=== PATIENT | male | born 1995 | race Caucasian/White ===

== ENCOUNTER → 2018-05-12 11:30 | Outpatient (RCR) | payer SELFPAY ==
--- NOTE | 2013-04-13 12:54 | TODAY_ITS ---
To: PCP AND CCC Reason for today's visit: HEALTH INSURANCE Plan: 04/10/13 - WALK IN - PT IN NEED OF HEALTH INSURANCE AND PCP. PROVIDED FORM FOR STATE BENEFITS. PT WILL COMPLETE AND CALL US WITH ANY QUESTIONS. WE CALLED AND CONNECTED PT TO [facility]. PT HAS APPT AT THE END OF APRIL. PT WILL FOLLOW UP WITH ANGELA ON 04/11/13 WITH ANY HEALTH INSURANCE QUESTIONS. Action Plan: Chronic Condition: Referred to:
--- NOTE | 2013-05-11 15:59 | TODAY_ITS ---
To: PCP AND CCC Reason for today's visit: HEALTH INSURANCE Plan: 05/11/13 - WALK IN. PT UNSURE ABOUT HEALTH INSURANCE. WE CALLED STATE AND PT HAS ACTIVE MEDICAID AND 3SQUARES. UPDATED MEDICAID WITH PCP. PT HAS APPT TODAY WITH PCP. LOOKING TO START HIS MEDICATIONS AGAIN. 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 FOLLOW UP BY PHONE. Action Plan: Chronic Condition: Referred to:
== END ==
LOC: CCT 04-10 10:30
DX: 799.89 (principal)

== ENCOUNTER 2018-06-30 08:31 | Emergency (ER) | payer MEDICAID, SELFPAY ==
[2018-06-30 08:53] VITALS: BP 129/81; PULSE 78; RESP 14; TEMP 36.5; O2SAT 100
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
== END 2018-06-30 09:37 | disposition home or self-care (01) ==
PROVIDERS: Emergency Provider Student in an Organized Health Care Education/Training Program; PCP Nurse Practitioner Family
DX: F32.9 Major depressive disorder, single episode, unspecified (principal)
CPT/HCPCS: 99283

== ENCOUNTER 2019-03-07 09:16 | Emergency (ER) | payer MEDICAID, SELFPAY ==
[2019-03-07 09:22] VITALS: BP 134/86; PULSE 102; RESP 16; TEMP 36.5; O2SAT 96
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
== END 2019-03-07 10:04 | disposition home or self-care (01) ==
LOC: ER 10:18
PROVIDERS: Emergency Provider Emergency Medicine; PCP Nurse Practitioner Family
DX: S60.221A Contusion of right hand, initial encounter (principal); W22.09XA Striking against other stationary object, initial encounter
CPT/HCPCS: 29125; 99283; 73130; 99282; L3908

== ENCOUNTER 2019-06-29 09:47 | Emergency (ER) | payer MEDICAID, SELFPAY ==
[2019-06-29 09:57] VITALS: BP 121/80; PULSE 81; RESP 16; TEMP 37; O2SAT 98
--- NOTE | 2019-06-29 10:07 | ED.GENADUL_ITS ---
Discharge Plan Disposition Patient Disposition: HOME Condition: Stable Discharge Details Chief Complaint: Abd Prob Clinical Impression: Abdominal pain Primary Care Provider: Sylvia Borjas ED Provider: Julio Hernandez Home Meds and New Rx's Prescriptions: New omeprazole 20 mg capsule,delayed release(DR/EC) 20 mg PO DAILY Qty: 30 RF: 0 Continued sertraline [Zoloft] 100 MG tablet 150 mg PO QAM RF: 0 Discharge Instructions Instructions: Abdominal Pain (ED) Additional Instructions: follow up with your primary care provider within 1-2 weeks if you have severe worsening pain, persistent vomit or feel more ill return to the emergency department you can also try taking maalox and tums for the discomfort Stand Alone Forms: Work Release Medical Decision Making 23 yo male who denies chronic medical problems comes in with chief complaint of abdominal pain for a week that is worsening and worsens with eating. Denies fevers or chills, and no prior hx of pain like this and no prior surgeries. Hasn't had alcohol in 5 months per pt, uses marijuana otherwise denies drug use. He has tenderness in ruq, epigastric area and luq, no lowre abdominal tenderness or distention. suspect gerd vs gsatritis but feel labs and imaging to eval for possible pancreatitis, cholecystitis, vs sbo is indicated. labs and imaging unremarkable, only has mild epigastric pain now. Suspect gastritis. No haddad's sign. Will start ppi and have her f/u with pcp, return precautions given Differential Diagnosis Differential Diagnosis: cholecystitis, pancreatitis, sbo Medical Records Medical records reviewed: Yes I reviewed the patient's medical records. Imaging Data Radiologic Study: Attestation: I personally reviewed and interpreted this imaging study as follows: Imaging: CT Scan Radiologist's impression: no acute findings Lab Data Lab results reviewed: Yes I reviewed the patient's lab results. HPI General Mode of arrival: ambulatory . Date/Time Provider Initiated Documentation: 06/29/19 09:50 . Limitations to Documentation: no limitations . Information obtained by: patient . History of Present Illness 23 year old M presents to the emergency department with the chief complaint of abdominal pain, described as moderate and severe, Quality is described as aching, and is localized to the abdomen. Patient reports no radiation. Patient started experiencing this week(s) (1) and it has been constant. No relieving factors improve symptom(s), Eating worsens symptoms . Patient notes nausea/vo miting. Patient did receive the following treatments prior to arrival, none Related Data Home Medications Medication Instructions Recorded Confirmed sertraline [Zoloft] 150 mg PO QAM 08/21/17 03/07/19 omeprazole 20 mg PO DAILY #30 cap 06/29/19 Previous Rx's Medication Instructions Recorded omeprazole 20 mg PO DAILY #30 cap 06/29/19 Allergies Allergy/AdvReac Type Severity Reaction Status Date / Time acetaminophen Allergy Intermediate Itching Unverified 03/07/19 09:25 vancomycin Allergy Intermediate Itching Unverified 03/07/19 09:25 General Stated Complaint: Abd Prob RAY: 3 Review of Systems Review of Systems ROS Unobtainable: All systems reviewed & are unremarkable except as noted in HPI and below Constitutional Constitutional: Denies chills, Denies fever(s) and Denies weakness Cardiovascular Cardiovascular: Denies chest pain and Denies dyspnea Respiratory Respiratory: Denies cough and Denies dyspnea Musculoskeletal Musculoskeletal: Denies joint swelling Neurologic Neurologic: Denies weakness [facility] Social History Smoking/Tobacco Use Status: Current every day Alcohol Intake: former Drug use: Daily Substance use type: marijuana Do you feel safe at home: Yes Do you feel safe in your relationship?: Yes Exam Const General: no acute distress Orientation: alert HENMT Head: normal to inspection Ears: external ears normal General nose exam: external nose normal Mouth: moist mucous membranes Eyes General: appearance normal, both eyes and all related structures Neck Neck: normal visual inspection Resp Effort & Inspection: normal respiratory effort and able to speak in complete sentences Cardio Rate: regular rate GI Palpation: soft Skin General skin exam: no rashes or lesions noted Neuro General: alert and oriented x3 Extrem General: normal to inspection Psych Mental Status: mental status grossly normal Course Vital Signs Vital signs: Vital Signs Temperature 37.0 C 06/29/19 09:57 Pulse 81 06/29/19 09:57 Respiratory Rate 16 06/29/19 09:57 Blood Pressure 121/80 06/29/19 09:57 Pulse Oximetry 98 06/29/19 09:57 Temperature 37.0 C 06/29/19 09:57 Temperature Source Temporal Artery Scan 06/29/19 09:57 Pulse 81 06/29/19 09:57 Respiratory Rate 16 06/29/19 09:57 Respiratory Effort Non-Labored 06/29/19 10:04 Blood Pressure 121/80 06/29/19 09:57 Blood Pressure Position Sitting 06/29/19 09:57 Pulse Oximetry 98 06/29/19 09:57 Oxygen Delivery Method Room Air 06/29/19 09:57 Oxygen Flow Rate 0 06/29/19 09:57 Pain Level 8 06/29/19 09:57
--- NOTE | 2019-06-29 10:10 | DI.CT_ITS ---
EXAM: CT ABDOMEN PELVIS W CLINICAL HISTORY: upper abdominal pain TECHNIQUE: Post IV contrast without oral contrast. COMPARISON: No exams were available for comparison FINDINGS: The lung bases are clear. The heart size is normal. The liver, gallbladder, spleen, pancreas, adre nals and kidneys appear normal. The urinary bladder is nearly empty. The prostate is normal in size . The appendix is normal. There is no small-bowel or colonic distension or evidence of inflammatory change. There is no free air, free fluid or adenopathy. No bony abnormalities are seen. IMPRESSION: Negative CT of the abdomen and pelvis.
[2019-06-29] MEDS: Ketorolac 15 MG/ML VIAL IVP (10:16)
[2019-06-29] MEDS: Ondansetron 4 MG/2 ML VIAL IVP (10:20)
[2019-06-29] MEDS: Normal Saline 1,000 ML 1000 ML IV (10:45)
[2019-06-29 10:53] LABS: Abs Immature Grans 0.03 k/cumm (0.0-0.09); Absolute Basophil Count 0.16 k/cumm (0.0-0.2); HGB 14.7 g/dL (13.5-17.5); Mean Corp. HGB Concentration 34.2 g/dL (32.0-36.0); Mean Corpuscular Hemoglobin 28.8 pg (27.0-33.0); Mean Corpuscular Volume 84.3 fL (80-95); Mean Platelet Volume 9.3 fL (8.0-11.0); Platelet Count 521 x1000/uL (130-400); RBC Distribution Width 13.4 % (11.8-14.1); White Blood Cell Count 7.98 k/cumm (4.4-10.8)
[2019-06-29 11:07] LABS: INR 1.1 (0.9-1.1); Prothrombin Time 11.1 sec (9.3-11.0)
[2019-06-29 11:08] LABS: ALT 23 U/L (16-63); AST 16 U/L (15-37); Albumin 3.9 g/dL (3.4-5.0); Alkaline Phosphatase 58 U/L (46-116); Anion Gap 8.4 mmol/L (3-11); BUN 9 mg/dL (7-18); Bilirubin, Direct 0.08 mg/dL (0.00-0.20); Bilirubin, Total 0.3 mg/dL (0.2-1.0); CO2 29.6 mmol/L (21.0-32.0); Calcium 8.9 mg/dL (8.5-10.1); Chloride 105 mmol/L (98-107); Glucose 86 mg/dL (70-100); Lipase 95 U/L (73-393); Magnesium 1.9 mg/dL (1.8-2.4); Sodium 143 mmol/L (136-145); Total Protein 7.1 g/dL (6.4-8.2)
[2019-06-29 11:13] LABS: Absolute Lymphocyte Count 3.19 k/cumm (1.2-3.4); Absolute Monocyte Count 0.48 k/cumm (0.11-0.7); Absolute Neutrophil Count 3.75 k/cumm (1.2-6.7); Atypical Lymphocytes % 7
[2019-06-29 11:14] LABS: Diff Comment N
[2019-06-29] MEDS: Omnipaque 350 MG/ML 100 ML BTL IJ (11:34)
[2019-06-29 12:00] VITALS: BP 126/80; PULSE 72; RESP 16; TEMP 37; O2SAT 98
--- NOTE | 2019-06-29 17:02 | NUR.NOTE ---
Nursing Note: Referral faxed to PCP for follow up within 1 wk. Amberly Chou.
== END 2019-06-29 12:05 | disposition home or self-care (01) ==
PROVIDERS: Emergency Provider Emergency Medicine; PCP Nurse Practitioner Family
DX: R10.13 Epigastric pain (principal)
CPT/HCPCS: 36415; 80053; 83690; 96361; 96374; 96375; 99285; 74177; 82248; 83735; 85025; 85610; 85730; 99284; J1885; J2405; J3490

== ENCOUNTER 2019-11-24 16:01 | Emergency (ER) | payer MEDICAID, SELFPAY ==
[2019-11-24 16:10] VITALS: BP 115/65; PULSE 80; RESP 18; TEMP 36.5; O2SAT 96
--- NOTE | 2019-11-24 16:20 | W.ED.GENAD ---
Discharge Plan Disposition Patient Disposition: HOME Condition: Stable Discharge Details Chief Complaint: Orthopedic Clinical Impression: Foot sprain Primary Care Provider: None,None ED Provider: Cristal Vargas Home Meds and New Rx's Prescriptions: Continued acetaminophen 500 mg Tablet 500 mg PO QID PRNRF: 0 Discharge Instructions Instructions: Foot Sprain (ED) Additional Instructions: Follow up with primary care provider in 3-5 days. Return to ED sooner if any worsening or concerns. Increase oral fluids. Please take Tylenol or Ibuprofen with food every 4-6 hours as needed for pain and swelling. Rest ice compression elevation Wear postop shoe for comfort. Stand Alone Forms: Work Release Medical Decision Making 1622: Foot x-ray ordered and ordered ibuprofen. TECHNIQUE: Imaging protocol: XR Right foot. Views: 3 or more views. COMPARISON: No relevant prior studies available. FINDINGS: Bones/joints: Normal. Soft tissues: Normal. IMPRESSION: No acute findings. Thank you for allowing us to participate in the care of your patient. Dictated and Authenticated by: Bridgette Wade MD 11/24/2019 4:47 PM Eastern Time ([place] & [place]) Post op shoe and crutches supplied to patient. Instructed on RICE rocedanna, verbalized understanding. Differential Diagnosis: Occult fracture, Contusion, Ligament injury. HPI General Mode of arrival: ambulatory. Date/Time Provider Initiated Documentation: 11/24/19 16:12. Limitations to Documentation: no limitations. Information obtained by: patient. HPI Narrative: 24-year-old male presents with right foot pain after inversion type injury states he tripped and fell. And then couple hours later a cow stepped on his same foot. Was wearing boots at the time. No obvious deformity or swelling noted dorsal pedal pulses intact. He is tender to palpation on the lateral side of his foot. No ankle pain no leg or knee pain. Related Data Home Medications Medication Instructions Recorded Confirmed acetaminophen 500 mg PO QID PRN 11/24/19 11/24/19 Allergies Allergy/AdvReac Type Severity Reaction Status Date / Time acetaminophen Allergy Intermediate Itching Unverified 11/24/19 16:13 vancomycin Allergy Intermediate Itching Unverified 11/24/19 16:13 General Stated Complaint: Orthopedic RAY: 4 Review of Systems Narrative: Constitutional: Negative for weight loss, alert and oriented, well groomed, normal body habitus, appears comfortable. HEENT: Denies trauma, headaches, blurry vision, nasal discharge, sore throat, trouble swallowing. Chest: Denies chest pain, palpitations, irregular rhythm, hypertension. Respiratory: Denies Shortness of breath, cough, hemoptysis. GI: Denies abdominal pain, nausea, vomiting, diarrhea, constipation. : Denies dysuria, hematuria, flank pain, rectal bleeding. Extremities: Complaining of right foot pain Neuro: Denies dizziness, blurry vision, weakness, syncope, headache or facial numbness. Hematologic: Denies easy bruising, intolerance to heat or cold, hair loss. [facility] Medical History MRSA infection Right Foot Surgical History Repair, Undescended Testicle Right Social History Smoking/Tobacco Use Status: Current every day Tobacco Type: cigarettes Alcohol Intake: former Drug use: Daily Substance use type: marijuana Do you feel safe at home: Yes Do you feel safe in your relationship?: Yes Exam Narrative Exam Narrative: Constitutional: Allert and oriented x3. Appears stated age. Normal body habitus. Head: Normocephalic, no trauma. Eyes: Pupils PERRLA, Red reflex noted, EOM's intact. Eyelids symmetrical withour lesions, discharge, or swelling. ENT: Bilateral TM's WNL, External ear normal to inspection, no mastoid TTP, swelling, or erythema, Nasal turbinates WNL, no nasal discharge. Normal dentition, Posterior pharynx WNL, no exudate. Chest: RRR, Normal S1, S2, distal pulses intact. Resp: Lungs clear to auscultation bilaterally, no wheezes, rales, or rhonchi. Musculoskeletal: Normal gait, 5/5 strength to all four extremities. Right lateral stove tender to palpation, dorsal pedal pulses intact, cap refill less than 3 seconds. No ankle pain. No tib-fib tenderness or deformity no knee pain. Skin: No suspicious rashes or lesions. Capillary refill ?2 sec. Neurologic: Cranial nerves II-XII intact. Alert and oriented x 3. DTR's intact. Hematologic/Lymphatic: No ecchymosis, no lymphadenopathy. Course Vital Signs Vital signs: Vital Signs Temperature 36.5 C 11/24/19 16:10 Pulse 80 11/24/19 16:10 Respiratory Rate 18 11/24/19 16:10 Blood Pressure 115/65 11/24/19 16:10 Pulse Oximetry 96 11/24/19 16:10 Temperature 36.5 C 11/24/19 16:10 Temperature Source Skin 11/24/19 16:10 Pulse 80 11/24/19 16:10 Respiratory Rate 18 11/24/19 16:10 Respiratory Effort Non-Labored 11/24/19 16:14 Blood Pressure 115/65 11/24/19 16:10 Blood Pressure Position Sitting 11/24/19 16:10 Pulse Oximetry 96 11/24/19 16:10 Oxygen Delivery Method Room Air 11/24/19 16:10 Oxygen Flow Rate 0 11/24/19 16:10 Pain Level 7 11/24/19 16:10
[2019-11-24] MEDS: Ibuprofen 600 MG TAB PO (16:32)
--- NOTE | 2019-11-24 16:40 | DI.RAD_ITS ---
EXAM: XR FOOT RT COMPLETE CLINICAL HISTORY: Fall, cow stepped on foot. TECHNIQUE: 2D digital imaging was performed. COMPARISON: No exams were available for comparison FINDINGS: BONES: No acute fracture is present. No bony destructive lesion is seen. JOINTS: No dislocation present. SOFT TISSUE: Normal. IMPRESSION: Unremarkable radiographs of the right foot. DATA REPOSITORY: RADIATION DOSE DELIVERED:
--- NOTE | 2019-11-24 16:47 | DI.VRAD_ITS ---
PROCEDURE INFORMATION: Exam: XR Right Foot Complete Exam date and time: 11/24/2019 4:40 PM Age: 24 years old Clinical indication: Other: Fall, cow stepped on foot TECHNIQUE: Imaging protocol: XR Right foot. Views: 3 or more views. COMPARISON: No relevant prior studies available. FINDINGS: Bones/joints: Normal. Soft tissues: Normal. IMPRESSION: No acute findings. Dictated and Authenticated by: Bridgette Wade MD. Ordering:ANTHONY Bee MD
== END 2019-11-24 17:07 | disposition home or self-care (01) ==
PROVIDERS: Emergency Provider Registered Nurse Emergency
DX: S93.691A Other sprain of right foot, initial encounter (principal); W19.XXXA Unspecified fall, initial encounter; W55.22XA Struck by cow, initial encounter
CPT/HCPCS: 99283; 73630; E0114

== ENCOUNTER 2021-02-04 15:09 | Observation (INO) | payer MEDICAID, SELFPAY ==
[2021-02-04 15:46] VITALS: BP 129/62; PULSE 85; RESP 16; TEMP 36.1; O2SAT 99
--- NOTE | 2021-02-04 16:05 | W.ED.GENAD ---
Discharge Plan Disposition Patient Disposition: [facility] INPATIENT Condition: Serious Discharge Details Chief Complaint: Abd Prob Clinical Impression: Appendicitis Primary Care Provider: Jaylin,Local ED Provider: Robinson Pelletier [place] Meds and New Rx's Prescriptions: No Action acetaminophen 500 mg Tablet 500 mg PO QID PRNRF: 0 Medical Decision Making 25-year-old gentleman who presents complaining of right-sided abdominal pain, nausea, vomiting that began yesterday and worsened throughout the day today. Clinically, certainly concerning for appendicitis. Will obtain IV access, laboratory values, give IV fluid, Zofran, morphine and reassess. Laboratory values reveal a white blood cell count of 29.65, platelet count 466, absolute neutrophils 26.98, lactate 1.2, urinalysis greater than [address] imaging. Patient was given a second liter of IV fluid, 2 mg IV morphine, 4 mg IV Zofran as he has some dry heaving. CT imaging revealed uncomplicated appendicitis. Patient given 3.375 IV Zosyn in case discussed with our surgical team, Dr. Burgess. She will personally evaluate the patient here in the ER, please see her note Medical Records Medical records reviewed: Yes I reviewed the patient's medical records. Lab Data Lab results reviewed: Yes I reviewed the patient's lab results. Labs: 02/04/21 17:32 Blood Blood Culture - Pending 02/04/21 17:15 Blood Blood Culture - Pending Laboratory Tests Range/Units 02/04/21 02/04/21 02/04/21 16:05 16:05 16:05 WBC (4.4-10.8) 10^3/uL 29.65 H* RBC (4.36-5.78) 10^6/uL 5.51 Hgb (13.5-17.5) g/dL 15.7 Hct (40.0-50.0) % 45.9 MCV (80-95) fL 83.3 MCH (27.0-33.0) pg 28.5 MCHC (32.0-36.0) % 34.2 RDW (11.8-14.1) % 13.4 Plt Count (130-400) 10^3/uL 466 H MPV (8.0-11.0) fL 9.6 Immature Gran % 0.0 Neutrophils % 84.0 Band Neutrophils % 7 Lymphocytes % 4.0 Monocytes % 5.0 Eosinophils % 0.0 Basophils % 0.0 Nucleated RBC % % 0 Absolute Neutrophils (1.2-6.7) 10^3/uL 26.98 H Absolute Lymphocytes (1.2-3.4) 10^3/uL 1.19 L Absolute Monocytes (0.1-0.8) 10^3/uL 1.48 H Absolute Eosinophils (0.0-0.7) 10^3/uL 0.00 Absolute Basophils (0.0-0.2) 10^3/uL 0.00 RBC Morphology Normal PT (9.3-11.0) sec 11.0 INR (0.9-1.1) 1.1 VBG Lactate (0.6-1.4) mmol/L Sodium (136-145) mmol/L 140 Potassium (3.5-5.1) mmol/L 3.7 Chloride (98-107) mmol/L 99 Carbon Dioxide (21.0-32.0) mmol/L 24.2 Anion Gap (3-11) mmol/L 16.8 H BUN (7-18) mg/dL 10 Creatinine (0.70-1.30) mg/dL 1.0 Estimated GFR/1.73 m2 (mL/min/1.73m2) >= 60.00 Glucose (74-106) mg/dL 112 H Calcium (8.5-10.1) mg/dL 9.6 Total Bilirubin (0.2-1.0) mg/dL 0.7 AST (15-37) U/L 16 ALT (16-63) U/L 23 Alkaline Phosphatase (46-116) U/L 85 Total Protein (6.4-8.2) g/dL 9.0 H Albumin (3.4-5.0) g/dL 4.8 Lipase (73-393) U/L 39 Urine Color (Yellow) Urine Clarity (Clear) Urine pH (5-8) Ur Specific [place] (1.005-1.025) Urine Protein (Negative) mg/dL Urine Ketones (Negative) mg/dL Urine Blood (Negative) Urine Nitrite (Negative) Urine Bilirubin (Negative) Urine Urobilinogen (Up TO 0.2) EU/dL Ur Leukocyte Esterase (Negative) Urine RBC (0-2) HPF Urine WBC (0-5) HPF Ur Epithelial Cells (Negative) HPF Urine Crystals (Negative) HPF Urine Bacteria (Negative) HPF Urine Casts (Negative) LPF Urine Mucus (Negative) Ur Culture Indicated? Urine Glucose (Negative) mg/dL COVID-19 Source Range/Units 02/04/21 02/04/21 02/04/21 17:08 17:32 19:10 WBC (4.4-10.8) 10^3/uL RBC (4.36-5.78) 10^6/uL Hgb (13.5-17.5) g/dL Hct (40.0-50.0) % MCV (80-95) fL MCH (27.0-33.0) pg MCHC (32.0-36.0) % RDW (11.8-14.1) % Plt Count (130-400) 10^3/uL MPV (8.0-11.0) fL Immature Gran % Neutrophils % Band Neutrophils % Lymphocytes % Monocytes % Eosinophils % Basophils % Nucleated RBC % % Absolute Neutrophils (1.2-6.7) 10^3/uL Absolute Lymphocytes (1.2-3.4) 10^3/uL Absolute Monocytes (0.1-0.8) 10^3/uL Absolute Eosinophils (0.0-0.7) 10^3/uL Absolute Basophils (0.0-0.2) 10^3/uL RBC Morphology PT (9.3-11.0) sec INR (0.9-1.1) VBG Lactate (0.6-1.4) mmol/L 1.2 Sodium (136-145) mmol/L Potassium (3.5-5.1) mmol/L Chloride (98-107) mmol/L Carbon Dioxide (21.0-32.0) mmol/L Anion Gap (3-11) mmol/L BUN (7-18) mg/dL Creatinine (0.70-1.30) mg/dL Estimated GFR/1.73 m2 (mL/min/1.73m2) Glucose (74-106) mg/dL Calcium (8.5-10.1) mg/dL Total Bilirubin (0.2-1.0) mg/dL AST (15-37) U/L ALT (16-63) U/L Alkaline Phosphatase (46-116) U/L Total Protein (6.4-8.2) g/dL Albumin (3.4-5.0) g/dL Lipase (73-393) U/L Urine Color (Yellow) Yellow Urine Clarity (Clear) Clear Urine pH (5-8) 6.0 Ur Specific [place] (1.005-1.025) >= 1.030 H Urine Protein (Negative) mg/dL 100 H Urine Ketones (Negative) mg/dL >=160 H Urine Blood (Negative) Trace-lysed H Urine Nitrite (Negative) Negative Urine Bilirubin (Negative) Small H Urine Urobilinogen (Up TO 0.2) EU/dL 0.2 Ur Leukocyte Esterase (Negative) Negative Urine RBC (0-2) HPF 0-2 Urine WBC (0-5) HPF 5-10 Ur Epithelial Cells (Negative) HPF Moderate Urine Crystals (Negative) HPF Negative Urine Bacteria (Negative) HPF Rare Urine Casts (Negative) LPF 3-5 hyaline Urine Mucus (Negative) Negative Ur Culture Indicated? No/sq. contamination Urine Glucose (Negative) mg/dL Negative COVID-19 Source Nasal/nares HPI General Mode of arrival: ambulatory. Date/Time Provider Initiated Documentation: 02/04/21 15:16. Limitations to Documentation: no limitations. Information obtained by: patient. HPI Narrative: This is a 25-year-old male, denies any significant past medical history. He presents to the ER today complaining of right-sided abdominal pain that radiates to his epigastric region, began yesterday and has worsened in nature. He reports sharp stabbing pain, nausea, vomiting, not able to eat or drink anything to. He denies recent travel, sick exposures, or bad food exposure. He denies any radiation of his pain into his back, groin, testicles. Subjective fever today per his significant other, patient denies fever to me. Patient states that he did not eat anything all day today. He tried having a popsicle today around 2 PM but could not tolerate it. He denies headache, neck pain, chest pain, shortness of breath, dysuria, hematuria, diarrhea or constipation. Reports his last normal bowel movement was sometime this morning. Denies history of abdominal surgeries. Has not taken any [id number] medication today for symptomatic control. Related Data Home Medications Medication Instructions Recorded Confirmed acetaminophen 500 mg PO QID PRN 11/24/19 02/04/21 Allergies Allergy/AdvReac Type Severity Reaction Status Date / Time acetaminophen Allergy Intermediate Itching Unverified 02/04/21 17:40 vancomycin Allergy Intermediate Itching Unverified 02/04/21 17:40 General Stated Complaint: Abd Prob RAY: 3 Review of Systems Constitutional Constitutional: Denies fatigue, Reports fever(s) and Denies headache(s) ENT Ears, Nose, Mouth, and Throat: Denies headache(s) and Denies neck pain Cardiovascular Cardiovascular: Denies chest pain and Denies dyspnea Respiratory Respiratory: Denies cough and Denies dyspnea Gastrointestinal Gastrointestinal: Reports abdominal pain, Denies constipation, Denies diarrhea, Reports nausea and Reports vomiting Genitourinary Genitourinary: Denies dysuria Musculoskeletal Musculoskeletal: Denies back pain and Denies neck pain Integumentary/Breasts Skin/Breast: Denies rash Neurologic Neurologic: Denies headache(s) Endocrine Endocrine: Denies fatigue Hematologic/Lymphatic Hematologic/Lymphatic: Denies easy bleeding and Denies easy bruising [facility] Medical History (Updated 02/04/21 @ 21:13 by DEON Monroe) MRSA infection Right Foot Surgical History Repair, Undescended Testicle Right Social History Smoking/Tobacco Use Status: Current every day Tobacco Type: cigarettes Smoking risk assessment performed?: Yes Alcohol Intake: former Drug use: Daily Substance use type: marijuana Do you feel safe at home: Yes Do you feel safe in your relationship?: Yes Exam Const General: cooperative and healthy appearing Orientation: alert, awake and oriented x3 HENMT Head: normal to inspection, normocephalic and atraumatic Mouth: moist mucous membranes abnormal (Dry) Eyes General: appearance normal, both eyes and all related structures Conjunctivae: conjunctivae normal Neck Neck: normal visual inspection, trachea midline and supple Resp Effort & Inspection: normal respiratory effort and able to speak in complete sentences Auscultation: clear to auscultation bilaterally Cardio Rate: regular rate Rhythm: regular rhythm GI Inspection: normal to inspection Palpation: soft, not firm, guarding in the RLQ, no pulsatile masses and tender in the RLQ, in the RUQ and at McBurney's point Auscultation: normal bowel sounds Back/Spine/Pelvis Back: No back tenderness Skin General skin exam: no rashes or lesions noted Neuro General: patient alert, patient awake, moves all extremities and no focal motor deficits Cognition: normal cognition Speech: speech normal Gait: normal gait Sensory Exam: no sensory deficits noted Extrem General: normal to inspection and full ROM Psych Appearance: grossly normal Mental Status: mental status grossly normal Course Vital Signs Vital signs: Vital Signs Temperature 36.1 C L 02/04/21 15:46 Pulse 85 02/04/21 15:46 Respiratory Rate 16 02/04/21 15:46 Blood Pressure 129/62 02/04/21 15:46 Pulse Oximetry 99 02/04/21 15:46 Temperature 36.1 C L 02/04/21 15:46 Temperature Source Skin 02/04/21 15:46 Pulse 85 02/04/21 15:46 Respiratory Rate 16 02/04/21 15:46 Blood Pressure 129/62 02/04/21 15:46 Blood Pressure Position Sitting 02/04/21 15:46 Pulse Oximetry 99 02/04/21 15:46 Oxygen Delivery Method Room Air 02/04/21 15:46 Oxygen Flow Rate 0 02/04/21 15:46 Pain Level 10 02/04/21 15:46
[2021-02-04] MEDS: Normal Saline 1,000 ML 1000 ML IV ×2 (16:14→19:45)
[2021-02-04] MEDS: Ondansetron 4 MG/2 ML VIAL IVP ×2 (16:14→19:23)
[2021-02-04 16:19] LABS: HCT 45.9 % (40.0-50.0); HGB 15.7 g/dL (13.5-17.5); MCH 28.5 pg (27.0-33.0); MCHC 34.2 % (32.0-36.0); MCV 83.3 fL (80-95); MPV 9.6 fL (8.0-11.0); Nucleated RBC 0 %; Platelet Count 466 10^3/uL (130-400); RBC 5.51 10^6/uL (4.36-5.78); RDW 13.4 % (11.8-14.1); RDW-SD 41.1 fL
[2021-02-04 16:22] LABS: WBC 29.65 10^3/uL (4.4-10.8)
[2021-02-04 16:36] LABS: Absolute Neutrophil Count 26.98 10^3/uL (1.2-6.7); Bands % 7
[2021-02-04 16:37] LABS: Absolute Lymphocyte Count 1.19 10^3/uL (1.2-3.4); Absolute Monocyte Count 1.48 10^3/uL (0.1-0.8); Diff Comment Manual Differential; RBC Morphology Normal
[2021-02-04 16:40] LABS: ALT 23 U/L (16-63); AST 16 U/L (15-37); Albumin 4.8 g/dL (3.4-5.0); Alkaline Phosphatase 85 U/L (46-116); Anion Gap 16.8 mmol/L (3-11); BUN 10 mg/dL (7-18); Bilirubin, Total 0.7 mg/dL (0.2-1.0); CO2 24.2 mmol/L (21.0-32.0); Calcium 9.6 mg/dL (8.5-10.1); Chloride 99 mmol/L (98-107); Glucose 112 mg/dL (74-106); Lipase 39 U/L (73-393); Potassium 3.7 mmol/L (3.5-5.1); Sodium 140 mmol/L (136-145)
[2021-02-04 17:12] LABS: Source Nasal/Nares
[2021-02-04 17:48] LABS: Lactate 1.2 mmol/L (0.6-1.4)
[2021-02-04 17:59] LABS: INR 1.1 (0.9-1.1)
[2021-02-04 18:15] VITALS: BP 122/78; PULSE 91; RESP 16; TEMP 36.8; O2SAT 98
[2021-02-04] MEDS: Omnipaque 350 MG/ML 100 ML BTL IJ (18:16)
[2021-02-04] MEDS: Normal Saline Flush 10 ML SYR IVP ×3 (18:17→23:02)
[2021-02-04] MEDS: Normal Saline - Diluent 50 ML VIAL IV (18:17)
[2021-02-04 19:15] LABS: Bilirubin Small (Negative); Blood Trace-lysed (Negative); Clarity Clear (Clear); Glucose Negative (Negative); Ketones >=160 mg/dL (Negative); Leukocyte Esterase Negative (Negative); Nitrite Negative (Negative); Specific Gravity >= 1.030 (1.005-1.025); Urobilinogen 0.2 EU/dL (Up TO 0.2)
[2021-02-04 19:25] LABS: Bacteria Rare HPF (Negative); Casts 3-5 Hyaline LPF (Negative); Crystals Negative HPF (Negative); Epithelial Cells Moderate HPF (Negative); Mucus Negative (Negative); RBC 0-2 HPF (0-2)
--- NOTE | 2021-02-04 19:25 | DI.CT_ITS ---
Exam(s) CT ABDOMEN PELVIS W EXAM: CT ABDOMEN PELVIS W CLINICAL HISTORY: RLQ PAIN, ELEVATED WBC. TECHNIQUE: Imaging Protocol: Axial computed tomography images with coronal and sagittal reformatted images were created and reviewed CONTRAST MATERIAL: Intravenous: Omnipaque 100cc Oral: None COMPARISON: No exams were available for comparison FINDINGS: VISUALIZED LUNG BASES: No nodules nor pleural effusions evident. ABDOMEN: There is no ascites. LIVER: There are no focal hepatic lesions evident . GALLBLADDER/BILIARY: No obvious gallbladder pathology. CBD is not dilated. PANCREAS: No evidence of pancreatic mass nor dilatation of the pancreatic duct. SPLEEN: Spleen is not enlarged. No obvious intrasplenic lesions. Splenic and portal veins are paten t. ADRENALS: There are no significant adrenal masses. KIDNEYS:No cysts evident. No solid renal masses. No calculi nor hydronephrosis.. ABDOMINAL AORTA: Abdominal aorta is not enlarged. LYMPH NODES:There is no retroperitineal nor paraaortic adenopathy. ABDOMINAL WALL: No evidence of significant anterior abdominal wall hernia. GI: The appendix is thickened and straightened and exhibits a diameter of 8 millimeters. There is pe riappendiceal streaking. There is no appendicular lith. No prominent adenopathy in this region. PELVIS: GI: As above.No evidence of sigmoid diverticulitis. LYMPH NODES: There is no intrapelvic nor inguinal adenopathy. REPRODUCTIVE: Prostate not enlarged URINARY BLADDER: Thickened wall but probably related to under distention. OSSEOUS: No significant osseous lesions. IMPRESSION: 1. Findings are consistent with acute appendicitis. No evidence of rupture at this time. RADIATION DOSE DELIVERED: 696.95mGy.cm Total DLP DATA REPOSITORY: All CT scans at this facility are submitted to the National Radiology Data Registry (NRDR) Dose Index Registry (DIR) with the [employer] (ACR). RADIATION OPTIMIZATION: All CT scans at this facility use at least one of these dose optimization te chniques: automated exposure control; mA and/or kV adjustment per patient size (includes targeted exa ms where dose is matched to clinical indication); or iterative reconstruction.
[2021-02-04 19:26] LABS: C & S Indicated? No/Sq. Contamination
--- NOTE | 2021-02-04 20:15 | DI.VRAD_ITS ---
Addendum created by Dipesh Abel DO on 02/04/2021 8:20:34 PM EDT: THIS REPORT CONTAINS FINDINGS THAT MAY BE CRITICAL TO PATIENT CARE. The findings were verbally communicated via telephone conference with DEON Hopper, 02/04/2021 8:19 PM EDT. The findings were acknowledged and understood. Initial report created on 02/04/2021 8:14:54 PM EDT: PROCEDURE INFORMATION: Exam: CT Abdomen And Pelvis With Contrast Exam date and time: 02/04/2021 7:10 PM Age: 25 years old Clinical indication: Abdominal pain; Localized; Right lower quadrant (rlq); Prior surgery; Surgery date: 6+ months; Surgery type: Undescended testicle, staph; Patient HX: Rlq pain with nausea/vomiting, and fever x24hrs TECHNIQUE: Imaging protocol: Computed tomography of the abdomen and pelvis with contrast. Radiation optimization: All CT scans at this facility use at least one of these dose optimization techniques: automated exposure control; mA and/or kV adjustment per patient size (includes targeted exams where dose is matched to clinical indication); or iterative reconstruction. Contrast material: [id number]; Contrast volume: 100 ml; Contrast route: INTRAVENOUS (IV); COMPARISON: CT ABDOMEN PELVIS W 02/04/2021 6:13 PM FINDINGS: Liver: There is a small region of focal fatty infiltration in the liver adjacent to the falciform ligament. Gallbladder and bile ducts: Normal. No calcified stones. No ductal dilation. Pancreas: Normal. No ductal dilation. Spleen: Normal. No splenomegaly. Adrenal glands: Normal. No mass. Kidneys and ureters: Normal. No hydronephrosis. Stomach and bowel: No dilated loops of small bowel or colonic dilatation. Appendix: The appendix is distended measuring 10 mm. This is associated with mural thickening, mural enhancement and periappendiceal stranding. No appendicoliths. Intraperitoneal space: Unremarkable. No free air. No significant fluid collection. Vasculature: Unremarkable. No abdominal aortic aneurysm. Lymph nodes: Unremarkable. No enlarged lymph nodes. Urinary bladder: Unremarkable as visualized. Reproductive: Unremarkable as visualized. Bones/joints: Unremarkable. No acute fracture. Soft tissues: There is an uncomplicated fat-containing umbilical hernia. IMPRESSION: Acute appendicitis. Dictated and Authenticated by: Dipesh Abel MD. Ordering:ABILIO Bowers MD
[2021-02-04 20:34] VITALS: BP 136/79; PULSE 89; RESP 16; TEMP 37.1; O2SAT 98
[2021-02-04] MEDS: PIPERACILLIN/TAZO 3.375 GM in Normal Saline 50 ML IVPB (20:43)
--- NOTE | 2021-02-04 21:56 | W.PM.HP.N ---
Date of service: 02/04/21 Time of Service: 21:56 Assessment and Plan Assessment and plan (1) Appendicitis: Status: Acute Assessment and plan: This is a healthy 25-year-old male who presents with a one-day history of abdominal pain, and vomiting. Clinical evaluation in the ED diagnosed acute appendicitis. A surgical consult was called. I reviewed the clinical data, interviewed, and examined the patient, and agreed with the diagnosis. During my exam, he was non-toxic, and had focal voluntary guarding without rebound. He has been afebrile and hemodynamically stable. I reviewed the risks of laparoscopic appendectomy, including pain, bleeding, infection, abscess, breakdown of staple line, and injury to surrounding structures, as well as complications of anesthesia, including aspiration, cardiac events, or , with the patient. He demonstrated understanding and agreed. --Admit to the surgical service --IV Zosyn --IV fluid resuscitation --AM labs --pain control --NPO --DVT and GI prophylaxis --will move expeditiously to the operating room after resuscitation when it is available (2) Depression: Status: Inactive Assessment and plan: will hold Zoloft until post-op History of Present Illness History of Present Illness Chief Complaint: abdominal pain, nausea/vomiting Consults Consult date: 02/04/21 Narrative: This is a healthy 25-year-old male who presents with a one day history of abdominal pain, with nausea and vomiting. He describes waking up and having a normal morning yesterday. After he had lunch, around noon, he started having sharp, epigastric pain, radiating to the right upper quadrant, and nausea. By the time he left work at 4pm, he had started vomiting. Throughout the evening, and overnight, his abdominal pain was unrelenting, and he was unable to keep anything down. He had a restless night trying to find a comfortable position to sleep. He had a subjective fever earlier, and admits to some chills. He denies dysuria. He denies having diarrhea or a bowel movement. He has never had similar pain in the past. Review of Systems Constitutional Constitutional: Reports anorexia, Reports chills, Reports difficulty sleeping, Reports lethargy, Reports poor appetite and Reports weakness Eyes Eyes: Denies blurry vision and Denies loss of vision ENT Ears, Nose, Mouth, and Throat: Denies dysphagia, Reports dizziness and Denies sore throat Cardiovascular Cardiovascular: Denies chest pain, Denies palpitations and Denies dyspnea Respiratory Respiratory: Denies cough and Denies dyspnea Gastrointestinal Gastrointestinal: Reports abdominal pain (started in the epigastrium and migrated to RLQ), Denies hematochezia, Denies change in bowel habits, Denies dysphagia and Reports heartburn Genitourinary Genitourinary: Denies difficulty urinating, Denies dysuria and Reports urinary hesitancy Musculoskeletal Musculoskeletal: Denies arthralgias, Denies joint swelling and Denies muscle cramps Integumentary/Breasts Skin/Breast: Denies rash and Denies jaundice Neurologic Neurologic: Reports dizziness, Denies loss of vision and Reports weakness Psychiatric Psychiatric: Reports depression (on Zoloft) Endocrine Endocrine: Denies palpitations Allergic/Immunologic Comments: Vancomycin leads to red man syndrome with severe itching PFSH Medical History (Updated 02/04/21 @ 23:21 by David Burgess MD) Depression MRSA infection Right Foot Surgical History Repair, Undescended Testicle Right Social History Smoking/Tobacco Use Status: Current every day Tobacco Type: cigarettes Smoking risk assessment performed?: Yes Alcohol Intake: former Drug use: Daily Substance use type: marijuana Do you feel safe at home: Yes Do you feel safe in your relationship?: Yes Meds Allergies and Home Medications Allergies Allergy/AdvReac Type Severity Reaction Status Date / Time acetaminophen Allergy Intermediate Itching Unverified 02/04/21 17:40 vancomycin Allergy Intermediate Itching Unverified 02/04/21 17:40 Home Medications Medication Instructions Recorded Confirmed Type acetaminophen 500 mg PO QID PRN 11/24/19 02/04/21 History Exam Const General: cooperative, healthy appearing, no acute distress, well developed and well groomed Nutritional Appearance: average body habitus and well nourished Orientation: alert, awake and oriented x3 HENMT Head: normocephalic Ears: hearing grossly normal bilaterally General nose exam: external nose normal Neck Neck: trachea midline and supple Resp Effort & Inspection: normal respiratory effort and able to speak in complete sentences Auscultation: clear to auscultation bilaterally Cardio Rate: regular rate Rhythm: regular rhythm Heart Sounds: S1 normal and S2 normal GI Inspection: normal to inspection and no abdominal wall ecchymosis Palpation: soft, guarding in the RLQ, not rigid and tender in the RLQ and at McBurney's point; with no rebound tenderness and Rovsing's sign negative Auscultation: hyperactive bowel sounds General: No bladder normal to palpation Other: no suprapubic tenderness Skin General skin exam: no rashes or lesions noted Other: many tattoos Neuro General: patient alert, patient awake, patient oriented x3 and moves all extremities Cognition: normal cognition Speech: speech normal Extrem General: no calf tenderness Psych Appearance: grossly normal and well kempt Mental Status: mental status grossly normal Speech and Movement: speech and movement normal Mood: congruent mood Affect: normal affect Attitude: cooperative Thought Process: normal Thought Content: normal Results CT ABD/PEL (02/06/2021): IMPRESSION: Acute appendicitis . Labs Result diagrams: 02/05/21 06:25 02/05/21 06:25 Labs: Laboratory Results - last 24 hr 02/04/21 02/04/21 02/04/21 16:05 16:05 16:05 WBC 29.65 H* RBC 5.51 Hgb 15.7 Hct 45.9 MCV 83.3 MCH 28.5 MCHC 34.2 RDW 13.4 Plt Count 466 H MPV 9.6 Immature Gran % 0.0 Neutrophils % 84.0 Band Neutrophils % 7 Lymphocytes % 4.0 Monocytes % 5.0 Eosinophils % 0.0 Basophils % 0.0 Nucleated RBC % 0 Absolute Neutrophils 26.98 H Absolute Lymphocytes 1.19 L Absolute Monocytes 1.48 H Absolute Eosinophils 0.00 Absolute Basophils 0.00 RBC Morphology Normal PT 11.0 INR 1.1 VBG Lactate Sodium 140 Potassium 3.7 Chloride 99 Carbon Dioxide 24.2 Anion Gap 16.8 H BUN 10 Creatinine 1.0 Estimated GFR/1.73 m2 >= 60.00 Glucose 112 H Calcium 9.6 Total Bilirubin 0.7 AST 16 ALT 23 Alkaline Phosphatase 85 Total Protein 9.0 H Albumin 4.8 Lipase 39 Urine Color Urine Clarity Urine pH Ur Specific [place] Urine Protein Urine Ketones Urine Blood Urine Nitrite Urine Bilirubin Urine Urobilinogen Ur Leukocyte Esterase Urine RBC Urine WBC Ur Epithelial Cells Urine Crystals Urine Bacteria Urine Casts Urine Mucus Ur Culture Indicated? Urine Glucose COVID-19 Source 02/04/21 02/04/21 02/04/21 17:08 17:32 19:10 WBC RBC Hgb Hct MCV MCH MCHC RDW Plt Count MPV Immature Gran % Neutrophils % Band Neutrophils % Lymphocytes % Monocytes % Eosinophils % Basophils % Nucleated RBC % Absolute Neutrophils Absolute Lymphocytes Absolute Monocytes Absolute Eosinophils Absolute Basophils RBC Morphology PT INR VBG Lactate 1.2 Sodium Potassium Chloride Carbon Dioxide Anion Gap BUN Creatinine Estimated GFR/1.73 m2 Glucose Calcium Total Bilirubin AST ALT Alkaline Phosphatase Total Protein Albumin Lipase Urine Color Yellow Urine Clarity Clear Urine pH 6.0 Ur Specific [place] >= 1.030 H Urine Protein 100 H Urine Ketones >=160 H Urine Blood Trace-lysed H Urine Nitrite Negative Urine Bilirubin Small H Urine Urobilinogen 0.2 Ur Leukocyte Esterase Negative Urine RBC 0-2 Urine WBC 5-10 Ur Epithelial Cells Moderate Urine Crystals Negative Urine Bacteria Rare Urine Casts 3-5 hyaline Urine Mucus Negative Ur Culture Indicated? No/sq. contamination Urine Glucose Negative COVID-19 Source Nasal/nares Last Vital Signs Temp 98.7 F 02/04/21 20:34 Pulse 89 02/04/21 20:34 Resp 16 02/04/21 20:34 BP 136/79 02/04/21 20:34 Pulse Ox 98 02/04/21 20:34 COVID-19 Screening Have you, or household traveled for leisure in last 14 days?: No Had IN PERSON contact w/suspected or confirmed C-19 person: No
[2021-02-04 22:16] VITALS: BP 122/72; PULSE 94; RESP 18; TEMP 36.7; O2SAT 100
[2021-02-04] MEDS: MORPHine 10 MG/ML VIAL IM/IV (22:58)
[2021-02-04] MEDS: Lactated Ringers 1,000 ML 150 ML IV (23:01)
[2021-02-04 23:11] LABS: COVID-19 PCR Negative (Negative)
[2021-02-05] VITALS (15 sets, daily range): BP systolic 104–158; BP diastolic 50–90; PULSE 56–80; RESP 6–25; TEMP 36–36.8; O2SAT 96–100; BMI 28.8
[2021-02-05] MEDS: Pantoprazole 40 MG VIAL IVP ×2 (00:47→23:28)
[2021-02-05] MEDS: Ketorolac 30 MG/ML VIAL IVP ×5 (00:47→23:27)
[2021-02-05] MEDS: Normal Saline Flush 10 ML SYR IVP ×5 (00:48→23:27)
[2021-02-05] MEDS: Normal Saline 500 ML IV (04:51)
[2021-02-05] MEDS: PIPERACILLIN/TAZO 3.375 GM in Normal Saline 50 ML IVPB ×4 (04:51→21:40)
[2021-02-05] MEDS: Lactated Ringers 1,000 ML 150 ML IV ×2 (05:49→15:02)
[2021-02-05 07:22] LABS: Abs Immature Grans 0.07 10^3/uL (0.0-0.06); Absolute Lymphocyte Count 2.73 10^3/uL (1.2-3.4); Absolute Monocyte Count 1.71 10^3/uL (0.1-0.8); Absolute Neutrophil Count 11.77 10^3/uL (1.2-6.7); Basophils % 0.4; Eosinophils % 0.6; HCT 35.5 % (40.0-50.0); HGB 11.9 g/dL (13.5-17.5); Immature Grans % 0.4; Lymphocytes % 16.6; MCH 28.1 pg (27.0-33.0); MCHC 33.5 % (32.0-36.0); MCV 83.9 fL (80-95); MPV 10.1 fL (8.0-11.0); Monocytes % 10.4; Neutrophils % 71.6; Nucleated RBC 0 %; Platelet Count 373 10^3/uL (130-400); RBC 4.23 10^6/uL (4.36-5.78); RDW 13.7 % (11.8-14.1); RDW-SD 42.4 fL; WBC 16.44 10^3/uL (4.4-10.8)
[2021-02-05 07:41] LABS: ALT 15 U/L (16-63); AST 11 U/L (15-37); Alkaline Phosphatase 56 U/L (46-116); Anion Gap 9.1 mmol/L (3-11); BUN 9 mg/dL (7-18); Bilirubin, Total 0.9 mg/dL (0.2-1.0); CO2 24.9 mmol/L (21.0-32.0); CREATININE 0.9 mg/dL (0.70-1.30); Calcium 8.3 mg/dL (8.5-10.1); Chloride 107 mmol/L (98-107); Glucose 88 mg/dL (74-106); Potassium 3.5 mmol/L (3.5-5.1); Sodium 141 mmol/L (136-145); Total Protein 5.9 g/dL (6.4-8.2)
[2021-02-05 07:50] LABS: Absolute Basophil Count 0.07 10^3/uL (0.0-0.2); Diff Comment Agrees w/ Instrument
[2021-02-05 07:51] LABS: RBC Morphology Normal
[2021-02-05] MEDS: MORPHine 10 MG/ML VIAL IM/IV (08:24)
--- NOTE | 2021-02-05 09:11 | W.ANESPRE ---
General Info Date of Service Date Performed: 02/05/21 Height: 5 ft 2.5 in Weight: 72.575 kg Body Mass Index (BMI): 28.8 Surgical Procedure: Operation Date: 02/05/21 10:40 Proposed Procedures Side Surgeon p Appendectomy Laparoscopic David Burgess MD Meds Allergies and Home Medications Allergies Allergy/AdvReac Type Severity Reaction Status Date / Time acetaminophen Allergy Intermediate Itching Unverified 02/04/21 17:40 vancomycin Allergy Intermediate Itching Unverified 02/04/21 17:40 Home Medication Medication Instructions Recorded acetaminophen 500 mg PO QID PRN 11/24/19 Current Visit Medications: Current Medications Generic Name Dose Route Start Last Admin Trade Name Freq PRN Reason Stop Dose Admin Albuterol Sulfate 2.5 mg 02/04/21 21:26 Albuterol 2.5 Mg/3 Ml Inh Soln Vial UPD Q4H PRN PRN Sodium Chloride 500 mls @ 0 mls/hr 02/04/21 21:26 02/05/21 05:24 Saline 500ml Bag IV 0 mls/hr PRN PRN Infusion As Directed Ringer's Solution 1,000 mls @ 150 mls/hr 02/04/21 21:30 02/05/21 05:49 IV 150 mls/hr INFUSION SYMONE Administration Piperacillin Sod/Tazobactam 50 mls @ 100 mls/hr 02/05/21 04:00 02/05/21 05:24 Sod 3.375 gm/ Sodium Chloride IVPB Infused Q6H SYMONE Infusion Protocol IV Miscellaneous Supplies 1 each 02/04/21 21:30 Iv Access IV DIRECTED SYMONE Ketorolac Tromethamine 30 mg 02/05/21 00:00 02/05/21 05:49 Ketorolac 30 Mg/Ml Vial IVP 02/10/21 00:00 30 mg Q6H SYMONE Administration Morphine Sulfate 2 - 4 mg 02/04/21 21:26 02/05/21 08:24 Morphine 10 Mg/Ml Vial IM/IV 2 mg Q3H PRN PRN Administration Ondansetron HCl 0 mg 02/04/21 21:26 Ondansetron 4 Mg/2 Ml Vial IVP Q6H PRN PRN Pantoprazole Sodium 40 mg 02/05/21 00:00 02/05/21 00:47 Pantoprazole 40 Mg Vial IVP 40 mg Q24H SYMONE Administration Sodium Chloride 0 ml 02/04/21 21:26 02/05/21 04:52 Normal Saline Flush 10 Ml Syr IVP 10 ml PRN PRN Administration PFSH Active Problems Active Problems: Problem Status Onset Code Appendicitis K37 Medical History Medical History (Updated 02/04/21 @ 23:21 by David Burgess MD) Depression MRSA infection Right Foot Surgical History Surgical History Repair, Undescended Testicle Right Tobacco Smoking/Tobacco Use Status: Current every day Tobacco Type: cigarettes Smoking cigarettes per day: 10 Alcohol Alcohol Intake: former Substance Use Substance use: Daily Substance use type: marijuana Vital Signs and Lab Results Vital Signs Most Recent Vital Signs in EMR: Most Recent Vital Signs Temp Pulse Resp BP Pulse Ox 36.0 C L 61 19 117/70 98 02/05/21 07:08 02/05/21 07:08 02/05/21 07:08 02/05/21 07:08 02/05/21 07:08 Lab Results Result Diagrams: 02/05/21 06:25 02/05/21 06:25 Blood Type / Crossmatch: No Data to Display Complete Blood Count: White Blood Count 16.44 10^3/uL (4.4-10.8) H 02/05/21 06:25 02/05/21 Red Blood Count 4.23 10^6/uL (4.36-5.78) L 02/05/21 06:25 02/05/21 Hemoglobin 11.9 g/dL (13.5-17.5) L 02/05/21 06:25 02/05/21 Hematocrit 35.5 % (40.0-50.0) L 02/05/21 06:25 02/05/21 Platelet Count 373 10^3/uL (130-400) 02/05/21 06:25 02/05/21 Complete Metabolic Panel: Sodium Level 141 mmol/L (136-145) 02/05/21 06:25 02/05/21 Potassium Level 3.5 mmol/L (3.5-5.1) 02/05/21 06:25 02/05/21 Chloride Level 107 mmol/L (98-107) 02/05/21 06:25 02/05/21 Carbon Dioxide Level 24.9 mmol/L (21.0-32.0) 02/05/21 06:25 02/05/21 Blood Urea Nitrogen 9 mg/dL (7-18) 02/05/21 06:25 02/05/21 Creatinine 0.9 mg/dL (0.70-1.30) 02/05/21 06:25 02/05/21 Calcium Level 8.3 mg/dL (8.5-10.1) L 02/05/21 06:25 02/05/21 Albumin 3.0 g/dL (3.4-5.0) L 02/05/21 06:02/05/21 Glucose Level 88 mg/dL (74-106) 02/05/21 06:25 02/05/21 Liver Function Panel: Alanine Aminotransferase (ALT/SGPT) 15 U/L (16-63) L 02/05/21 06:02/05/21 Aspartate Amino Transf (AST/SGOT) 11 U/L (15-37) L 02/05/21 06:25 02/05/21 Coagulation Panel: INR International Normalized Ratio 1.1 (0.9-1.1) 02/04/21 16:05 02/04/21 Prothrombin Time 11.0 sec (9.3-11.0) 02/04/21 16:05 02/04/21 Cardiac Panel: No Data to Display Arterial Blood Gas: No Data to Display Venous Blood Gas: Venous Blood Lactate 1.2 mmol/L (0.6-1.4) 02/04/21 17:32 02/04/21 Pancreas Panel: Lipase 39 U/L (73-393) 02/04/21 16:05 02/04/21 Thyroid Panel: No Data to Display Infectious Disease: Coronavirus (COVID-19)(PCR) Negative (Negative) 02/04/21 17:08 02/04/21 Coronavirus 2019 Source Nasal/nares 02/04/21 17:08 02/04/21 Blood Cultures: No Data to Display Toxicology Panel: No Data to Display Anesthesia Assessment and Plan Anesthesia History Personal History: No History of Anesthesia Complications Family History: No Family History of Anesthesia Complications Exercise Tolerance Exercise Tolerance: Metabolic Equivalents>4 Pertinent Negatives Pertinent Negatives: No Major Cardiovascular Symptoms or Complaints and No Major Pulmonary Symptoms or Complaints Cardiac & Pulmonary Exam Cardiac Exam: Normal S1/S2 Heart Sounds Pulmonary Exam: Clear Bilateral Breath Sounds Airway Exam Known Difficult Airway: No Mallampati Class: 2 Mouth Opening: Normal (> 3cm) Thyromental Distance: Greater than 3 cm Neck Range of Motion: Full ROM Neck Circumference: Normal Teeth Condition: Normal Dentition ASA Classification ASA Score: ASA 2 Emergency Case?: No NPO Status NPO Status: NPO Clears >2 hours, Solids >8 hours Anesthesia Plan Resuscitation Status: Full Code Anesthesia Technique: General Anesthesia Airway Planned: Endotracheal Tube Pain Management: Surgeon and patient request nerve block Monitors Used: Standard Monitors
--- NOTE | 2021-02-05 10:43 | PDOC.CMIN ---
- If Service Date Differs Date of service: 02/05/21 Time of Service: 10:43 Care Management Initial Assess REASON FOR HOSPITALIZATION:: Acute Appendicitis PAST MEDICAL HISTORY/PAST SURGICAL HISTORY:: Medical History. Depression. MRSA infection. Right Foot. Surgical History. Repair, Undescended Testicle. Right PREVIOUS FUNCTIONAL STATUS/SOCIAL/FAMILY SUPPORTS:: Artur lives in [place] with his , Emily. He has two children, a one year old son and a four year old daughter. He works at the local [employer]. He is independent at baseline. CURRENT FUNCTIONAL STATUS:: Artur was sitting up in bed when CM met with him. He reported that he hesitated coming into the hospital, but his mother in law strongly recommend that he go to the ED after he had been vomitting for 24 hours. He reported that he is glad that he arrived when he did. He is scheduled for the OR this afternoon to have his appendix removed. CM will continue to follow. ADVANCE DIRECTIVES:: None on file. CM will offer forms. Has patient been provided with info about the portal/API?: Yes Did the patient sign up for the portal?: No CODE STATUS:: Full Code INSURANCE COVERAGE / FINANCIAL ISSUES:: [employer] CURRENT HOME/COMMUNITY SERVICES/EQUIPMENT:: No current services or equipment. PRIMARY CARE PHYSICIAN:: No local. CM will discuss local PCP options. POTENTIAL DISCHARGE NEEDS:: Follow up appointments, attachment to local PCP. PATIENT/FAMILY EDUCATION NEEDS:: Review discharge instructions including limitations and ask me three. ANTICIPATED BARRIERS TO DISCHARGE:: None identified. TRANSPORTATION:: Via private vehicle by family. PLAN:: Anticipate Artur will return home once medically cleared per MD. He will follow up with surgical services and his discharge plan of care. He will be driven home via private vehicle by family. CM will continue to follow.
[2021-02-05] MEDS: MORPHine 4 MG/ML SYR IM/IV ×4 (11:37→23:51)
[2021-02-05] MEDS: Lactated Ringers 1,000 ML 30 ML IV (13:03)
--- NOTE | 2021-02-05 14:29 | APP_PTH ---
PATIENT: Artur Webb LOC: U#:[id number] AGE/SX: 25/M ROOM: [facility] RE02/04/[address]: David Burgess : 1995 BED: A DIS: 02/06/2021 SPEC #: [id number] RECD: 02/05/21 17:47 STATUS: [facility] REQ #: [id number] GEOFFREY: 02/05/21 14:[address]: David Burgess DEPT: Surgical Specimen RECD BY: Maribel Hua ENTERED: 02/05/21 17:48 SP TYPE: Appendix OTHR DR: No Local Tissues: 1 - APPENDIX NOT INCIDENTAL Procedures: GROSS AND MICRO LEVEL 3 Comments: [id number]
[2021-02-05] MEDS: Normal Saline 20 ML VIAL (14:37)
--- NOTE | 2021-02-05 15:57 | W.ANESPOSTOP ---
Postoperative Evaluation Date, Time and Location Date Performed: 02/05/21 Time Performed: 15:58 Patient Location: Day Surgery Unit Vital Signs Most Recent Imported Vital Signs: Most Recent Vital Signs Temp Pulse Resp BP Pulse Ox 36.3 C L 80 21 125/62 98 02/05/21 15:53 02/05/21 15:53 02/05/21 15:53 02/05/21 15:53 02/05/21 15:53 Pain Score Most Recent Pain Score: Most Recent Pain Score Pain Level 7 02/05/21 11:37 Assessment Mental Status: Arousable with meaningful communication Airway and Respiratory Function: Patent airway with normal (patient baseline) respiratory exam Cardiovascular Function: Hemodynamically Stable Hydration Status: Adequately Hydrated Nausea & Vomiting: No Nausea or Vomiting Pain: Pt. Denies Any Pain Peripheral Nerve Block: Patient did not receive a nerve block
[2021-02-05] MEDS: Ondansetron 4 MG/2 ML VIAL IVP (16:32)
[2021-02-05] MEDS: oxyCODONE 5 MG TAB PO (18:15)
--- NOTE | 2021-02-05 21:09 | W.PM.PROGNOT ---
Date of Service Date of service: 02/05/21 Time of Service: 09:00 Assessment and Plan Assessment and plan (1) Appendicitis: Status: Acute Assessment and plan: 25-year-old male with acute appendicitis. Leukocytosis improved. Patient's pain is well-controlled. --IV Zosyn --IV fluid resuscitation --pain control --NPO --DVT and GI prophylaxis --OR today for laparoscopic appendectomy, possible open Subjective Subjective Patient reports: no new complaints, feels better, pain is less, voiding w/o difficulty, no bowel movement and afebrile; denies shortness of breath Interval history since last seen: Pt has received IV resuscitation with fluids and antibiotics overnight. Pain well-controlled with Toradol overnight, and minimal narcotics. Voiding without difficulty. Feels better. Exam Const General: cooperative, comfortable, no acute distress and well developed Nutritional Appearance: average body habitus Orientation: alert, awake and oriented x3 Neck Neck: normal visual inspection Resp Effort & Inspection: normal respiratory effort and able to speak in complete sentences GI Inspection: normal to inspection and no abdominal wall ecchymosis Palpation: soft, not firm, no guarding and tender in the RLQ; Rovsing's sign negative Other: no suprapubic tenderness Neuro General: patient alert, patient awake, patient oriented x3 and oriented Cognition: normal cognition Speech: speech normal Extrem General: no calf tenderness Psych Appearance: grossly normal Mental Status: mental status grossly normal Speech and Movement: speech and movement normal Mood: congruent mood Affect: normal affect Attitude: cooperative Thought Process: normal Thought Content: normal Objective Last Vital Signs Temp 97.5 F L 02/05/21 19:26 Pulse 67 02/05/21 19:26 Resp 18 02/05/21 19:26 BP 131/79 02/05/21 19:26 Pulse Ox 97 02/05/21 19:26 Laboratory Results - last 24 hr 02/04/21 02/05/21 02/05/21 17:08 06:25 06:25 WBC 16.44 H D RBC 4.23 L Hgb 11.9 L D Hct 35.5 L D MCV 83.9 MCH 28.1 MCHC 33.5 RDW 13.7 Plt Count 373 MPV 10.1 Immature Gran % 0.4 Neutrophils % 71.6 Lymphocytes % 16.6 Monocytes % 10.4 Eosinophils % 0.6 Basophils % 0.4 Nucleated RBC % 0 Absolute Neutrophils 11.77 H Absolute Lymphocytes 2.73 Absolute Monocytes 1.71 H Absolute Eosinophils 0.10 Absolute Basophils 0.07 RBC Morphology Normal Sodium 141 Potassium 3.5 Chloride 107 Carbon Dioxide 24.9 Anion Gap 9.1 BUN 9 Creatinine 0.9 Estimated GFR/1.73 m2 >= 60.00 Glucose 88 Calcium 8.3 L Total Bilirubin 0.9 AST 11 L ALT 15 L Alkaline Phosphatase 56 Total Protein 5.9 L Albumin 3.0 L SARS-CoV-2 (PCR) Negative
--- NOTE | 2021-02-05 21:22 | W.PM.OP ---
Date of service: 02/05/21 Time of Service: 14:49 Operative Note Operative Note DATE OF PROCEDURE: 02/05/21 PRE-OP DIAGNOSIS: acute appendicitis POST-OP DIAGNOSIS: same PROCEDURE: Laparoscopic appendectomy SURGEON: David Burgess ANESTHESIA TYPE: Local By Surgeon and General LMA/ETT Refer to Anesthesia Record ESTIMATED BLOOD LOSS: 10 PATHOLOGY: other (appendix) COMPLICATIONS: None Patient was transported to: PACU Patient's condition: stable Indications: This is a 25-year-old male who presented to the ED with a one-day history of abdominal pain, and nausea/vomiting. Clinical evaluation revealed acute appendicits, with high leukocytosis. After my clinical review, he was admitted to the surgical service. I reviewed the risks of surgery, including bleeding, pain, infection, abscess, leak, and injury to surrounding structures; and the risks of general anesthesia including cardiac events, stroke, and . He demonstrated understanding, and was in agreement. Findings: Inflamed appendix without gangrene. Clear serous fluid in the pelvis and right lower quadrant. Procedure Description: Informed surgical and anesthesia consent was obtained from the patient. He was identified by name and birthdate an brought into the operating room. He was positioned supine on the operating room table. Sequential compression devices were applied to the lower extremities. Monitors were applied, and general anesthesia was induced. A pham catheter was placed under sterile conditions. The left arm was carefully padded and tucked. Time out was called and participated in by the entire operative team, and we were in agreement. Ancef 2g was administered. The abdomen was prepped with Chloraprep, and draped in standard fashion. A curvilinear suprumbilical incision was made after the skin and subcutaneous tissues were infiltrated with the local anesthetic, Exparel. Blunt and sharp dissection was utilized to enter the abdomen layer by layer in standard Luis technique. A finger sweep was performed to ensure no adherent intra-abdominal contents. The Luis trochar was introduced, and pneumoperitoneum was established. A 10mm camera was inserted and a survey was performed to ensure no injury was incurred when entering the abdomen, and there was none. Two 5-mm trochars were introduced in the LLQ and suprapubic positions in standard fashion, after instilling local anesthetic. The patient was repositioned in Trendelenburg, right side up. Clear serous fluid that was apparent in the pelvis and right lower quadrant was aspirated. The appendix was easily identified at the end of the colonic tenia. It was edematous and hyperemic without gangrene or perforation. The appendix was elevated, and the mesoappendix was divided using the Ligasure energy device, paying close attention not to include unwanted extraneous tissues. Once the appendix was fully isolated off of its mesentery, the camera was switched to a 5mm, and the endo-LUIS stapler was introduced into the abdomen. The stapler was utilized to divide the appendix, including a small cuff of cecum. The appendix was placed in an endo-catch bag. The staple line was observed for hemostasis. The pelvis and RLQ were thoroughly irrigated and aspirated. The patient was repositioned in neutral position. Once again the abdomen was thoroughly inspected in all 4 quadrants assuring no visible injury, and hemostasis in the right lower quadrant. The 5mm trocars were removed under direct vision. The Luis trocar with the appendix in the specimen bag were removed, and the appendix was passed off the field. The fascia of the umbilical incision was closed in a figure-of-8 fashion with a 0-Vicryl, ensuring no intra-abdominal contents were trapped. All incisions were irrigated, and injected again with the remaining local anesthetic. The incisions were closed with 4-0 monocryl. Dermabond was applied to the closed incisions. Prior to closure, all counts of sharp and soft instruments was correct. The Pham catheter was removed. The patient was awakened and extubated in the operating room. The patient was transferred to the recovery room in stable condition.
[2021-02-06 00:03] VITALS: O2SAT 96
[2021-02-06] MEDS: PIPERACILLIN/TAZO 3.375 GM in Normal Saline 50 ML IVPB ×2 (03:34→09:15)
[2021-02-06 03:46] VITALS: BP 111/67; PULSE 60; RESP 17; TEMP 36.8; O2SAT 98
[2021-02-06] MEDS: Ketorolac 30 MG/ML VIAL IVP (05:23)
[2021-02-06 07:07] VITALS: BP 133/86; PULSE 61; RESP 16; TEMP 36.1; O2SAT 100
[2021-02-06 07:21] LABS: Abs Immature Grans 0.06 10^3/uL (0.0-0.06); Absolute Basophil Count 0.03 10^3/uL (0.0-0.2); Absolute Lymphocyte Count 1.89 10^3/uL (1.2-3.4); Absolute Monocyte Count 1.44 10^3/uL (0.1-0.8); Absolute Neutrophil Count 11.15 10^3/uL (1.2-6.7); Basophils % 0.2; HCT 36.5 % (40.0-50.0); HGB 12.3 g/dL (13.5-17.5); Immature Grans % 0.4; MCH 28.2 pg (27.0-33.0); MCHC 33.7 % (32.0-36.0); MCV 83.7 fL (80-95); MPV 10.5 fL (8.0-11.0); Monocytes % 9.9; Neutrophils % 76.5; Nucleated RBC 0 %; Platelet Count 378 10^3/uL (130-400); RBC 4.36 10^6/uL (4.36-5.78); RDW-SD 43.2 fL; WBC 14.57 10^3/uL (4.4-10.8)
[2021-02-06 07:42] LABS: ALT 18 U/L (16-63); AST 15 U/L (15-37); Albumin 3.4 g/dL (3.4-5.0); Alkaline Phosphatase 58 U/L (46-116); Anion Gap 9.4 mmol/L (3-11); BUN 7 mg/dL (7-18); Bilirubin, Total 0.6 mg/dL (0.2-1.0); CO2 29.6 mmol/L (21.0-32.0); CREATININE 0.9 mg/dL (0.70-1.30); Calcium 8.9 mg/dL (8.5-10.1); Chloride 104 mmol/L (98-107); Glucose 96 mg/dL (74-106); Potassium 4.2 mmol/L (3.5-5.1); Sodium 143 mmol/L (136-145); Total Protein 6.4 g/dL (6.4-8.2)
[2021-02-06] MEDS: oxyCODONE 5 MG TAB PO (09:23)
[2021-02-06 11:31] VITALS: BP 117/70; PULSE 62; RESP 18; TEMP 37; O2SAT 98
--- NOTE | 2021-02-06 12:43 | W.PM.PROGNOT ---
Date of Service Date of service: 02/06/21 Time of Service: 12:44 Assessment and Plan Assessment and plan (1) Appendicitis: Status: Acute Assessment and plan: 25-year-old male POD#1 s/p laparoscopic appendectomy. Doing very well. Ready for to go home. --regular diet --d/c IV --d/c home --will discharge with oral antibiotics x 3 days --will discharge with oxycodone PO x 9 --f/u in general surgery clinic in 10-14 days Subjective Subjective Patient reports: no new complaints, feels better, pain is less, tolerating a regular diet, voiding w/o difficulty and bowel movement; denies nausea and vomiting Interval history since last seen: Pt feels very well. Is ambulating and voiding without difficulty. Pain is controlled. Exam Const General: cooperative, healthy appearing, comfortable, no acute distress and well developed Nutritional Appearance: average body habitus Orientation: alert, awake and oriented x3 Eyes Other: no scleral icterus Resp Effort & Inspection: normal respiratory effort and able to speak in complete sentences Auscultation: clear to auscultation bilaterally Cardio Rate: regular rate Rhythm: regular rhythm Heart Sounds: S1 normal and S2 normal GI Inspection: normal to inspection and incision (clean, dry, intact) Palpation: soft and tender (appropriate divine-incisional tenderness) Auscultation: normal bowel sounds Other: no suprapubic tenderness Neuro General: patient alert, patient awake and patient oriented x3 Cognition: normal cognition Speech: speech normal Gait: normal gait Psych Appearance: grossly normal Mental Status: mental status grossly normal Speech and Movement: speech and movement normal Mood: congruent mood Affect: normal affect Attitude: cooperative Thought Process: normal Thought Content: normal Insight: insight good Judgment: judgment good Objective Last Vital Signs Temp 98.6 F 02/06/21 11:31 Pulse 62 02/06/21 11:31 Resp 18 02/06/21 11:31 BP 117/70 02/06/21 11:31 Pulse Ox 98 02/06/21 11:31 Laboratory Results - last 24 hr 02/06/21 02/06/21 06:02 06:02 WBC 14.57 H RBC 4.36 Hgb 12.3 L Hct 36.5 L MCV 83.7 MCH 28.2 MCHC 33.7 RDW 14.0 Plt Count 378 MPV 10.5 Immature Gran % 0.4 Neutrophils % 76.5 Lymphocytes % 13.0 Monocytes % 9.9 Eosinophils % 0.0 Basophils % 0.2 Nucleated RBC % 0 Absolute Neutrophils 11.15 H Absolute Lymphocytes 1.89 Absolute Monocytes 1.44 H Absolute Eosinophils 0.00 Absolute Basophils 0.03 Sodium 143 Potassium 4.2 Chloride 104 Carbon Dioxide 29.6 Anion Gap 9.4 BUN 7 Creatinine 0.9 Estimated GFR/1.73 m2 >= 60.00 Glucose 96 Calcium 8.9 Total Bilirubin 0.6 AST 15 ALT 18 Alkaline Phosphatase 58 Total Protein 6.4 Albumin 3.4
--- NOTE | 2021-02-06 13:05 | W.PM.DS.N ---
Date of service: 02/06/21 Time of Service: 13:05 DS: Diagnosis Discharge Diagnosis (1) Appendicitis: Status: Acute Discharge Plan Disposition Patient Disposition: HOME Condition: Good Discharge Details Reason For Visit: Acute Appendicitis Admit Date/Time: 02/04/21 21:26 Admit Provider: David Burgess Attending Provider: David Burgess [facility]: The patient was admitted late in the evening of 02/04/21, with high leukocytosis, and a diagnois of acute appendictitis, after a one-day history of abdominal pain and vomiting. He was started on Zosyn, and underwernt IV resuscitation overnight. He was taken to the operating room on 02/05, and had an uncomplicated laparoscopic appendectomy. The appendix was not gangrenous or perforated, but there was some serous fluid. He tolerated the procedure well. POD#1 the patient is feeling very well. His pain is controlled. He is tolerating a regular diet. He is voiding well,a nd had a bowel movement. And he is ambulating without difficulty. He has remained afebrile, and hemodynamically stable throughout, though still has leukocytosis. The patient is very eager to be discharged. Home Meds and New Rx's Prescriptions: New amoxicillin-pot clavulanate [Augmentin] 875-125 mg tablet 1 tab PO BID Qty: 6 RF: 0 oxycodone 5 mg capsule 5 mg PO Q6H PRNQty: 9 RF: 0 Discontinued acetaminophen 500 mg Tablet 500 mg PO QID PRNRF: 0 Discharge Instructions Instructions: Laparoscopic Appendectomy (DC) Additional Instructions: Call office or return to ED for fevers, chills, recurrent nausea/vomiting, or return of abdominal pain. No lifting >10-15 pounds for [address] while taking narcotic pain medication. Do not submerge wounds or take tub baths x 4 weeks. Stand Alone Forms: Nursing Discharge Form Activity:: no lifting >10-15lbs x 3w Equipment/Supplies:: No Equipment Needed Diet:: As Tolerated Discharge Data Discharge Comment: Follow-up with surgery clinic in 10-14 days DS: Summary Summary Time spent discussing smoking cessation with patient: 3 to 10 minutes Time Spent with Patient providing and/or coordinating discharge services: Greater than 30 minutes Status at Discharge Functional status at discharge: independent ambulation Overall status at discharge: patient is not back to baseline Mental Status: mental status grossly normal Speech and Movement: speech and movement normal Mood: congruent mood Affect: normal affect Quality: AMI Clinical Trial Participant: No Exam Psych Mental Status: mental status grossly normal Speech and Movement: speech and movement normal Mood: congruent mood Affect: normal affect DS: Data Vitals/I&O Vitals and I&O: Vital Signs Temperature 98.6 F 02/06/21 11:31 Temperature Source Tympanic 02/06/21 11:31 Pulse 62 02/06/21 11:31 Pulse Rhythm Regular 02/06/21 08:50 Respiratory Rate 18 02/06/21 11:31 Respiratory Effort Non-Labored 02/06/21 08:50 Respiratory Depth Normal 02/06/21 08:50 Respiratory Pattern Normal 02/06/21 08:50 Blood Pressure 117/70 02/06/21 11:31 Blood Pressure Position Sitting 02/04/21 15:46 Pulse Oximetry 98 02/06/21 11:31 Respiratory End-tidal CO2 24 02/05/21 15:40 Oxygen Delivery Method Room Air 02/06/21 11:31 Oxygen Flow Rate 0 02/06/21 11:31 Pain Level 0 02/06/21 11:31 Intake & Output 02/05/21 02/06/21 02/06/21 23:59 11:59 23:59 Intake Total 1477.5 / 2607.555 100 / 100 Output Total 2049 / 2274 300 / 300 Balance -572.5 / 332.555 -200 / -200 Intake: IV 1377.5 / 2507.555 100 / 100 Oral 100 / 100 Output: Urine 2049 300 / 300 Other: Urine Color Pale Pale Urine Appearance Clear Clear Urine Odor Normal Normal Stool Size Moderate Stool Characteristics Formed Liquid Brown Emesis Description None Voiding Methods Urinal Urinal Data Completed and Pending Labs on day of discharge: Labs from last 24 hours 02/06/21 02/06/21 06:02 06:02 WBC 14.57 H RBC 4.36 Hgb 12.3 L Hct 36.5 L MCV 83.7 MCH 28.2 MCHC 33.7 RDW 14.0 Plt Count 378 MPV 10.5 Immature Gran % 0.4 Neutrophils % 76.5 Lymphocytes % 13.0 Monocytes % 9.9 Eosinophils % 0.0 Basophils % 0.2 Nucleated RBC % 0 Absolute Neutrophils 11.15 H Absolute Lymphocytes 1.89 Absolute Monocytes 1.44 H Absolute Eosinophils 0.00 Absolute Basophils 0.03 Sodium 143 Potassium 4.2 Chloride 104 Carbon Dioxide 29.6 Anion Gap 9.4 BUN 7 Creatinine 0.9 Estimated GFR/1.73 m2 >= 60.00 Glucose 96 Calcium 8.9 Total Bilirubin 0.6 AST 15 ALT 18 Alkaline Phosphatase 58 Total Protein 6.4 Albumin 3.4 Preliminary micro results at discharge 02/04/21 17:32 Blood Culture - Preliminary Blood NO GROWTH 24 HOURS 02/04/21 17:15 Blood Culture - Preliminary Blood NO GROWTH 24 HOURS [facility] Medical History (Updated 02/04/21 @ 23:21 by David Burgess MD) Depression MRSA infection Right Foot Surgical History Repair, Undescended Testicle Right Social History Smoking/Tobacco Use Status: Current every day Tobacco Type: cigarettes Smoking risk assessment performed?: Yes Alcohol Intake: former Drug use: Daily Substance use type: marijuana Do you feel safe at home: Yes Do you feel safe in your relationship?: Yes
--- NOTE | 2021-02-06 13:35 | PDOC.CMDIS ---
- If Service Date Differs Date of service: 02/06/21 Time of Service: 13:35 LACE Index Scoring Tool - Questions: Length of Stay (in days): 1 Acuity (Admit via E.D.?): Yes E.D. Visits: 1 - Answers: Total Score: 5 Risk of Readmission: Low Risk Care Management Discharge Reason for Hospitalization: Acute Appendicitis Discharge Plan: Artur will be discharged home with no new services. He will follow up with his PCP, surgeon and discharge plan of care and transport with family. Patient/Family Education Needs: Review discharge instructions including limitations and ask me three.
== END 2021-02-06 13:50 | disposition home or self-care (01) ==
LOC: ER 21:50 → MS 22:07
PROVIDERS: Admitting Provider Surgery; Emergency Provider Physician Assistant; Visit Provider Surgery
PROC: 0DTJ4ZZ Resection of Appendix, Percutaneous Endoscopic Approach (ICD-10-PCS; CPT 44970; principal; 2021-02-05 10:30)
DX: K35.80 Unspecified acute appendicitis (principal); F32.9 Major depressive disorder, single episode, unspecified; F17.210 Nicotine dependence, cigarettes, uncomplicated; Z20.822 Contact with and (suspected) exposure to COVID-19
CPT/HCPCS: 44970; 36415; 80053; 83690; 87040; 87635; 96361; 96365; 96375; 96376; 99285; 74177; 81003; 81015; 83605; 85025; 85610; 88304; G0378; J0690; J1100; J1885; J2001; J2250; J2270; J2405; J2543; J2704; J3490

== ENCOUNTER 2022-09-28 16:25 | Emergency (ER) | payer MEDICAID, SELFPAY ==
[2022-09-28 16:28] VITALS: BP 144/76; PULSE 81; RESP 18; TEMP 36.7; O2SAT 98
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
[2022-09-28] MEDS: Erythromycin Ophth Oint 3.5 GM TUBE OU (17:47)
== END 2022-09-28 17:55 | disposition home or self-care (01) ==
PROVIDERS: Emergency Provider Physician Assistant
DX: T15.01XA Foreign body in cornea, right eye, initial encounter (principal); Z23 Encounter for immunization; Y99.0 Civilian activity done for income or pay; X58.XXXA Exposure to other specified factors, initial encounter
CPT/HCPCS: 99283; 99284

== ENCOUNTER 2022-12-03 14:04 | Outpatient (CLI) | payer MEDICAID, SELFPAY ==
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
== END 2022-12-03 14:24 ==
LOC: DI 14:06
PROVIDERS: Visit Provider Physician Assistant Medical
DX: R68.84 Jaw pain (principal)
CPT/HCPCS: 70110

== ENCOUNTER 2023-08-23 19:08 | Outpatient (REF) | payer MEDICAID, SELFPAY ==
[2023-08-25 12:42] LABS: GC Result Negative (Negative)
[2023-08-25 13:01] LABS: Chlamydia Result Positive (Negative)
== END 2023-08-23 19:09 | disposition home or self-care (01) ==
LOC: LBN 19:08
PROVIDERS: Visit Provider Nurse Practitioner Family
DX: Z20.2 Contact with and (suspected) exposure to infections with a predominantly sexual mode of transmission (principal)
CPT/HCPCS: 87491; 87591